=== PATIENT | female | born 1950 | race African-American/Black ===

== ENCOUNTER 2017-01-01 09:30 | Emergency (ER) | payer OTHER ==
[~2017-01-01] VITALS: Ht 160 cm; Wt 54.9 kg
[~2017-01-01 09:30] MED LIST: ALTOPREV10 MG PO; ASPIRIN ADULT L81 M1 PO; ASPIRIN81 M1 PO; ATIVAN0.5 MG PO; ATIVAN1 M1 PO; BENAZEPRIL HCL/1 TA3 PO; CRESTOR40 MG PO; LEVOTHYROXIN0.075 M1 PO; LIDODERM 5%1 EA TP; MOTRIN600 MG PO; TENORMIN25 MG PO; ULTRAM50 MG PO; ZOCOR40 MG PO; [UNRECOGNIZED DRUG - OTHER] PO
[2017-01-01 09:59] VITALS: BP 143/87
[2017-01-01] MEDS ORDERED: GLUCOPHAGE500 MG PO (10:05)
--- NOTE | 2017-01-01 10:40 | NUR ---
PATIENT PRESENTS TO ED WITH C/O LEFT FLANK PAIN X 6 WEEKS, DENIES INJURY.HX; DM,HYPOTHYROID,ANXIETY,HIGH CHOL,HTN; DENIES N/V/D; SKIN IS PINK/WARM/DRY; AAOX4 WITH EVEN AND STEADY GAIT; LUNGS CLEAR BL; HR EVEN AND REGULAR; PT DENIES ANY FEVER, CP, SOB, OR COUGH AT THIS TIME; PATIENT STATES PAIN OF 4/10 AT THIS TIME; VSS; PATIENT POSITIONED FOR COMFORT; HOB ELEVATED; BEDRAILS UP X2; BED DOWN. ER MD MADE AWARE OF PT STATUS.
--- NOTE | 2017-01-01 10:50 | NUR ---
DR GUERRERO ASSESSING THE PT AT BEDSIDE
[2017-01-01 11:04] VITALS: BP 143/87
--- NOTE | 2017-01-01 11:04 | NUR ---
Patient discharged with v/s stable. Written and verbal after care instructions given and explained. Patient alert, oriented and verbalized understanding of instructions. Ambulatory with steady gait. All questions addressed prior to discharge. ID band removed. Patient advised to follow up with PMD. Rx of FLEXERIL given. Patient educated on indication of medication including possible reaction and side effects. Opportunity to ask questions provided and answered.
== END 2017-01-01 11:04 | disposition home or self-care (01) ==
LOC: MED 09:30
DX: R10.9 Unspecified abdominal pain (principal); R11.2 Nausea with vomiting, unspecified; R19.7 Diarrhea, unspecified; E11.9 Type 2 diabetes mellitus without complications; I10 Essential (primary) hypertension; Z79.82 Long term (current) use of aspirin; Z79.899 Other long term (current) drug therapy; Z88.5 Allergy status to narcotic agent; Z90.710 Acquired absence of both cervix and uterus

== ENCOUNTER 2017-01-17 13:58 | Emergency (ER) | payer OTHER ==
[~2017-01-17] VITALS: Ht 160 cm; Wt 55.8 kg
[~2017-01-17 13:58] MED LIST changes: -ALTOPREV10 MG PO; +ASPI81CT89 PO; -ASPIRIN ADULT L81 M1 PO; -ASPIRIN81 M1 PO; +ATI.5 PO; -ATIVAN0.5 MG PO; -ATIVAN1 M1 PO; -BENAZEPRIL HCL/1 TA3 PO; -CRESTOR40 MG PO; +LEVO0.074 PO; -LEVOTHYROXIN0.075 M1 PO; -LIDODERM 5%1 EA TP; +METF500T PO; -MOTRIN600 MG PO; +SIMV40TA1 PO; -TENORMIN25 MG PO; -ULTRAM50 MG PO; -ZOCOR40 MG PO; -[UNRECOGNIZED DRUG - OTHER] PO
[2017-01-17 14:33] VITALS: BP 117/67
--- NOTE | 2017-01-17 14:41 | NUR ---
Patient going to XRAY via wheelchair per tech.
--- NOTE | 2017-01-17 14:43 | NUR ---
Patient taken to x-ray via w/c.
--- NOTE | 2017-01-17 14:50 | NUR ---
Patient placed in bed 7 by x-ray.
--- NOTE | 2017-01-17 14:52 | NUR ---
Dr. Christopher evaluating patient at bedside.
--- NOTE | 2017-01-17 14:53 | NUR ---
66/F presents to ED for evaluation of right shoulder pain after a trip and fall over a rock yesterday. Patient denies loss of conciousness. Patient also c/o neck stiffness, no deformity noted. Patient c/o 8/10 pain, aching, non radiating, constant pain. Patient is AOX4, ambulatory with steady gait. VSS.
[2017-01-17 15:20] VITALS: BP 141/65
--- NOTE | 2017-01-17 15:20 | NUR ---
Chart checked and completed. The patient's care was reviewed and supervised by Leo Polo RN.
--- NOTE | 2017-01-17 15:20 | NUR ---
Patient discharged with v/s stable. Written and verbal after care instructions given and explained. Patient alert, oriented and verbalized understanding of instructions. Ambulatory with steady gait. All questions addressed prior to discharge. ID band removed. Patient advised to follow up with PMD. Rx of ROBAXIN,MOTRIN, given. Patient educated on indication of medication including possible reaction and side effects. Opportunity to ask questions provided and answered.
== END 2017-01-17 15:20 | disposition home or self-care (01) ==
LOC: MED 13:58
DX: S40.011A Contusion of right shoulder, initial encounter (principal); E11.9 Type 2 diabetes mellitus without complications; I10 Essential (primary) hypertension; Z88.5 Allergy status to narcotic agent; Z79.82 Long term (current) use of aspirin; Z79.899 Other long term (current) drug therapy; W01.0XXA Fall on same level from slipping, tripping and stumbling without subsequent striking against object, initial encounter; Y93.89 Activity, other specified; Y92.89 Other specified places as the place of occurrence of the external cause; Y99.8 Other external cause status
CPT/HCPCS: 73030; 99284

== ENCOUNTER 2018-08-26 23:22 | Inpatient (IN) | payer OTHER ==
[~2018-08-26] VITALS: Ht 160 cm; Wt 55.8 kg
[~2018-08-26 23:22] MED LIST changes: +LEVO0.0712 PO; -LEVO0.074 PO
[2018-08-26 23:34] VITALS: BP 186/79
[2018-08-27 00:14] LABS: BASOPHILS % (AUTO) 0.4 % (0.0-2.0); EOSINOPHILS # (AUTO) 0.1 K/uL (0-0.4); EOSINOPHILS % (AUTO) 1.6 % (0.0-4.0); HEMATOCRIT 40.6 % (36-48); HEMOGLOBIN 13.1 g/dL (12.0-16.0); LYMPHOCYTES # (AUTO) 2.2 K/uL (2.5-16.5); LYMPHOCYTES % (AUTO) 26.4 % (20.5-51.1); MEAN CORPUSCULAR HEMOGLOBIN 27 pg (27-31); MEAN CORPUSCULAR HGB CONC 32 g/dL (33-37); MEAN CORPUSCULAR VOLUME 83.6 fL (80-94); MONOCYTES # (AUTO) 0.4 K/uL (0.8-1.0); MONOCYTES % (AUTO) 5.3 % (1.7-9.3); NEUTROPHILS # (AUTO) 5.6 K/uL (1.8-7.7); NEUTROPHILS % (AUTO) 66.3 % (42.2-75.2); PLATELET COUNT (AUTO) 213 K/uL (140-450); RED BLOOD CELL COUNT(AUTO) 4.86 MIL/uL (4.20-5.40); WHITE BLOOD COUNT (AUTO) 8.5 K/uL (4.8-10.8)
[2018-08-27 00:24] LABS: BARBITURATE, URINE NEG. ng/ml (NEG <=200); BENZODIAZEPINE, URINE NEG. ng/mL (NEG <=200); CANNABINOID, URINE NEG. ng/mL (NEG <=50); COCAINE, URINE NEG. ng/mL (NEG <=300); OPIATE, URINE NEG. ng/mL (NEG <=2000); PHENCYCLIDINE SCREEN,URINE NEG. ng/mL (NEG <=25)
[2018-08-27 00:36] LABS: APPEARANCE,URINE CLEAR (CLEAR); BILIRUBIN,URINE NEGATIVE (NEGATIVE); BLOOD, URINE TRACE (NEGATIVE); COLOR,URINE STRAW (YELLOW); LEUKOCYTE ESTERASE ,URINE NEGATIVE (NEGATIVE); NITRITE, URINE NEGATIVE (NEGATIVE); UGLUCOSE NEGATIVE (NEGATIVE)
[2018-08-27 00:37] LABS: RBC,URINE 0-5 (RARE) /HPF (0-5)
[2018-08-27 00:38] LABS: ALBUMIN 3.9 g/dL (3.4-5.0); ANION GAP 12.7 (8-16); ASPARTATE AMINOTRANSFERASE 22 U/L (15-37); CHLORIDE 103 mmol/L (98-107); GFR ARICAN-AMERICAN 71 mL/min (>90); GLUCOSE 147 mg/dL (74-106); POTASSIUM 3.7 mmol/L (3.5-5.1); SODIUM SERUM 142 mmol/L (136-145); TOTAL BILIRUBIN 0.2 mg/dL (0.0-1.0); UREA NITROGEN, BLOOD 17 mg/dL (7-18)
[2018-08-27 00:42] LABS: SALICYLATE < 2.8 mg/dL (2.8-20.0)
[2018-08-27 00:43] LABS: ACETAMINOPHEN < 0.5 ug/ml (10-30)
[2018-08-27] MEDS ORDERED: ACETAMINOPHEN EXTRA STRENGTH 500 MG TAB PO ONE (02:00)
[2018-08-27] MEDS ORDERED: LORazepam 0.5 MG TAB PO PRN (06:50)
[2018-08-27] MEDS ORDERED: ACETAMINOPHEN 325 MG TAB PO PRN (06:50)
[2018-08-27] MEDS ORDERED: DEXTROSE 50% 50 ML SYR IVP PRN (06:50)
[2018-08-27] MEDS ORDERED: INSULIN LISPRO SLIDING SCALE 100 UNITS/ML VIAL SUBQ PRN (06:50)
[2018-08-27] MEDS: BLOOD GLUCOSE MONITORING 1 DEV DEV FS SCH ×4 (07:45→20:35)
[2018-08-27] MEDS: metFORMIN 500 MG TAB PO SCH ×2 (08:27→16:49)
[2018-08-27 10:30] VITALS: BP 147/56
[2018-08-27] MEDS ORDERED: BENA20TA PO (11:36)
[2018-08-27] MEDS ORDERED: MELO-176 PO (11:36)
[2018-08-27] MEDS ORDERED: METO25TE2 PO (11:36)
[2018-08-27] MEDS ORDERED: MAGN200T12 PO (11:36)
[2018-08-27] MEDS ORDERED: CYCL10TA33 PO (11:36)
[2018-08-27] MEDS ORDERED: CYCLOBENZAPRINE 10 MG TAB PO PRN (14:00)
[2018-08-27] MEDS ORDERED: MELOXICAM 15 MG PO SCH (14:00)
[2018-08-27] MEDS ORDERED: CELECOXIB 100 MG CAP PO PRN (14:20)
[2018-08-27 16:00] VITALS: BP 149/55
[2018-08-27] MEDS: LORazepam 0.5 MG TAB PO PRN ×2 (16:48→20:34)
[2018-08-27] MEDS ORDERED: BENAZEPRIL 5 MG TAB PO SCH (17:00)
[2018-08-27] MEDS ORDERED: METOPROLOL SUCCINATE 50 MG TABER PO SCH (17:00)
[2018-08-27] MEDS ORDERED: BENA1TAB88 PO (17:42)
[2018-08-27 20:00] VITALS: BP 144/58
[2018-08-27] MEDS: BENAZEPRIL 10 MG TAB PO SCH (20:33)
[2018-08-27] MEDS: HYDROCHLOROTHIAZIDE 25 MG TAB PO SCH (20:34)
[2018-08-27] MEDS ORDERED: HYDROCHLOROTHIAZIDE PO SCH (21:00)
[2018-08-27] MEDS ORDERED: SIMVASTATIN 40 MG TAB PO SCH (21:00)
[2018-08-27] MEDS ORDERED: [UNRECOGNIZED DRUG - OTHER] PO SCH (21:00)
[2018-08-27] MEDS ORDERED: BENAZEPRIL PO SCH (21:00)
[2018-08-28] VITALS: BP 125/50
[2018-08-28] MEDS: BLOOD GLUCOSE MONITORING 1 DEV DEV FS SCH (05:54)
[2018-08-28] MEDS ORDERED: LEVOTHYROXINE 0.075 MG TAB PO SCH (06:30)
[2018-08-28 08:00] VITALS: BP 131/51
[2018-08-28] MEDS: metFORMIN 500 MG TAB PO SCH (08:20)
[2018-08-28] MEDS: BENAZEPRIL 10 MG TAB PO SCH (08:21)
[2018-08-28] MEDS: HYDROCHLOROTHIAZIDE 25 MG TAB PO SCH (08:21)
[2018-08-28] MEDS: LORazepam 0.5 MG TAB PO PRN (08:30)
[2018-08-28] MEDS ORDERED: ASPIRIN 81 MG TAB.CHEW PO SCH (09:00)
[2018-08-28] MEDS ORDERED: METOPROLOL SUCCINATE 50 MG TABER PO SCH (09:00)
[2018-08-28] MEDS ORDERED: MAGNESIUM OXIDE 400 MG TAB PO SCH (09:00)
[2018-08-28] MEDS ORDERED: BENAZEPRIL 20 MG TAB PO SCH (09:00)
[2018-08-28] MEDS ORDERED: MAGNESIUM OXIDE 400 MG PO SCH (09:00)
[2018-08-28] MEDS ORDERED: MAGNESIUM OXIDE 250 MG PO SCH (09:00)
== END 2018-08-28 11:05 | disposition home or self-care (01) | DRG 880 ==
LOC: MED 23:22 → MTU 08-27 07:04
PROVIDERS: ADMIT Hospitalist; ATTEND Hospitalist
DX: F41.9 Anxiety disorder, unspecified (principal); R45.851 Suicidal ideations; E11.9 Type 2 diabetes mellitus without complications; I10 Essential (primary) hypertension; E78.5 Hyperlipidemia, unspecified; E03.9 Hypothyroidism, unspecified; Z90.710 Acquired absence of both cervix and uterus; Z88.5 Allergy status to narcotic agent; Z91.018 Allergy to other foods; Z79.82 Long term (current) use of aspirin; Z79.84 Long term (current) use of oral hypoglycemic drugs; Z79.899 Other long term (current) drug therapy
CPT/HCPCS: 36415; 80053; 80305; 81001; 82948; 84484; 85025; 87081; 87086; 99285; G0480; G0482; J1815

== ENCOUNTER 2022-07-25 19:01 | Emergency (ER) | payer OTHER ==
[~2022-07-25] VITALS: Ht 160 cm; Wt 48.1 kg
[~2022-07-25 19:01] MED LIST changes: +ASPI-1822 PO; -ASPI81CT89 PO; +BENA1TAB69 PO; +BENA20TA PO; +CYCL10TA33 PO; +MAGN200T12 PO; +MELO-176 PO; +METF-346 PO; -METF500T PO; +METO25TE2 PO
[2022-07-25 19:15] VITALS: BP 157/74
--- NOTE | 2022-07-25 19:22 | NUR ---
Patient ambulated to bed 3 with strong gait, placed on monitor, lying in bed, A/Ox4, no s/s of distress.
--- NOTE | 2022-07-25 19:34 | NUR ---
SPOKE WITH PATIENT AT BEDSIDE; PATIENT REPORTS FALLING DOWN AND HITTING FOREHEAD ON CONCRETE. PATIENT DENIES LOC. DENIES VOMITING. PATIENT DOES REPORT NAUSEA. PREVIOUS FALL OCCURED IN 2017 PER PATIENT. CURRENT PAIN LEVEL = 6
[2022-07-25] MEDS ORDERED: IBUP-2213 PO (21:23)
[2022-07-25 21:30] VITALS: BP 162/53
--- NOTE | 2022-07-25 21:30 | NUR ---
Patient discharged with v/s stable. Written and verbal after care instructions given and explained. Patient alert, oriented and verbalized understanding of instructions. Ambulatory with steady gait. All questions addressed prior to discharge. ID band removed. Patient advised to follow up with PMD. Rx of IBUPROFEN 600MG given. Patient educated on indication of medication including possible reaction and side effects. Opportunity to ask questions provided and answered. DX: *HEAD INJURY, ADULT
== END 2022-07-25 21:30 | disposition home or self-care (01) ==
LOC: MED 19:01
DX: S13.4XXA Sprain of ligaments of cervical spine, initial encounter (principal); R51.9 Headache, unspecified; E11.9 Type 2 diabetes mellitus without complications; E07.9 Disorder of thyroid, unspecified; I10 Essential (primary) hypertension; Z79.899 Other long term (current) drug therapy; Z79.84 Long term (current) use of oral hypoglycemic drugs; Z79.82 Long term (current) use of aspirin; Z90.710 Acquired absence of both cervix and uterus; Z88.5 Allergy status to narcotic agent; Z91.018 Allergy to other foods; Z98.890 Other specified postprocedural states; W19.XXXA Unspecified fall, initial encounter; Y93.89 Activity, other specified; Y92.89 Other specified places as the place of occurrence of the external cause; Y99.8 Other external cause status
CPT/HCPCS: 70450; 72125; 99281; 99284

== ENCOUNTER 2023-03-13 19:47 | Emergency (ER) | payer OTHER ==
[~2023-03-13] VITALS: Ht 157.5 cm; Wt 47.6 kg
[~2023-03-13 19:47] MED LIST changes: +IBUP-2213 PO; +SIMV-373 PO; -SIMV40TA1 PO
[2023-03-13 19:52] VITALS: BP 186/76
--- NOTE | 2023-03-13 19:53 | NUR ---
PT KANNAN BLS. TAKEN TO BED 2
--- NOTE | 2023-03-13 20:00 | NUR ---
Dr. Freeman examining patient.
--- NOTE | 2023-03-13 20:27 | NUR ---
Dr. Freeman did dressing change for bleeding control.
--- NOTE | 2023-03-13 20:45 | NUR ---
Dressing notd to be soaking and informed Dr. Freeman. Dressing change soaked with Tranexamic Acid (as per verbal MD order) by Dr. Freeman done at bedside.
[2023-03-13] MEDS ORDERED: TRANEXAMIC ACID 1,000 MG/10 ML VIAL ONE (20:52)
--- NOTE | 2023-03-13 21:14 | NUR ---
PT'S DAUGHTER LACEY CALLED FOR UPDATE, PT STATES IT'S OK TO RELEASE INFORMATION.
--- NOTE | 2023-03-13 22:00 | NUR ---
Dressing soaked with blood. Dr. Freeman informed. Dressing change with surgicel done wrapped with chilo wrap. No signs of cardiorespiratory distress.
[2023-03-13 22:29] LABS: BASOPHILS % (AUTO) 0.5 % (0.0-2.0); EOSINOPHILS # (AUTO) 0.1 K/uL (0-0.4); EOSINOPHILS % (AUTO) 1.5 % (0.0-4.0); HEMATOCRIT 37.7 % (36-48); HEMOGLOBIN 12.7 g/dL (12.0-16.0); LYMPHOCYTES # (AUTO) 2.9 K/uL (2.5-16.5); LYMPHOCYTES % (AUTO) 37.1 % (20.5-51.1); MEAN CORPUSCULAR HEMOGLOBIN 29 pg (27-31); MEAN CORPUSCULAR HGB CONC 34 g/dL (33-37); MEAN CORPUSCULAR VOLUME 87.1 fL (80-94); MONOCYTES # (AUTO) 0.7 K/uL (0.8-1.0); MONOCYTES % (AUTO) 8.7 % (1.7-9.3); NEUTROPHILS # (AUTO) 4.1 K/uL (1.8-7.7); NEUTROPHILS % (AUTO) 52.2 % (42.2-75.2); PLATELET COUNT (AUTO) 172 K/uL (140-450); RED BLOOD CELL COUNT(AUTO) 4.32 MIL/uL (4.20-5.40); RED CELL DISTRIBUTION WIDTH 13.9 % (11.6-13.7); WHITE BLOOD COUNT (AUTO) 7.8 K/uL (4.8-10.8)
[2023-03-13] MEDS ORDERED: TRANEXAMIC ACID 1,000 MG/10 ML VIAL MC ONE (22:45)
[2023-03-13 22:47] LABS: ALBUMIN 3.4 g/dL (3.4-5.0); ANION GAP 12.8 (8-16); ASPARTATE AMINOTRANSFERASE 38 U/L (15-37); CARBON DIOXIDE 29.7 mmol/L (21-32); CHLORIDE 104 mmol/L (98-107); CREATININE 0.6 mg/dL (0.6-1.3); GLUCOSE 97 mg/dL (74-106); POTASSIUM 3.5 mmol/L (3.5-5.1); SODIUM SERUM 143 mmol/L (136-145); TOTAL BILIRUBIN 0.2 mg/dL (0.0-1.0); UREA NITROGEN, BLOOD 16 mg/dL (7-18)
--- NOTE | 2023-03-13 23:30 | NUR ---
Patient discharged with v/s stable. Written and verbal after care instructions given and explained by Dr. Martin. Patient verbalized understanding. Ambulatory with steady gait. All questions addressed prior to discharge. Advised to follow up with PMD.
[2023-03-13 23:37] VITALS: BP 156/70
== END 2023-03-13 23:30 | disposition home or self-care (01) ==
LOC: MED 19:47
DX: S01.83XA Puncture wound without foreign body of other part of head, initial encounter (principal); C44.309 Unspecified malignant neoplasm of skin of other parts of face; I11.0 Hypertensive heart disease with heart failure; E11.9 Type 2 diabetes mellitus without complications; E03.9 Hypothyroidism, unspecified; Z79.4 Long term (current) use of insulin; Z79.899 Other long term (current) drug therapy; X58.XXXA Exposure to other specified factors, initial encounter; Y93.89 Activity, other specified; Y92.89 Other specified places as the place of occurrence of the external cause; Y99.8 Other external cause status
CPT/HCPCS: 36415; 80053; 85025; 99283; J3490